=== PATIENT | female | born 1975 | race Hispanic/Latino ===

== ENCOUNTER 2020-12-10 16:52 | Emergency (ER) | payer SELFPAY ==
[2020-12-10] MEDS ORDERED: Ibuprofen 600 MG TAB ONE (18:58)
== END 2020-12-10 19:03 | disposition home or self-care (01) ==
LOC: MADERS 16:52
DX: S63.501A Unspecified sprain of right wrist, initial encounter (principal); S39.012A Strain of muscle, fascia and tendon of lower back, initial encounter; S80.01XA Contusion of right knee, initial encounter; R26.9 Unspecified abnormalities of gait and mobility; L83 Acanthosis nigricans; W01.0XXA Fall on same level from slipping, tripping and stumbling without subsequent striking against object, initial encounter

== ENCOUNTER 2022-04-11 12:24 | Outpatient (CLI) | payer BC | END 2022-04-11 12:25 | disposition home or self-care (01) | LOC: MADRAD 12:24 | PROVIDERS: ATTEND Family Medicine | DX: M25.531 Pain in right wrist (principal); M25.431 Effusion, right wrist; M25.831 Other specified joint disorders, right wrist ==